=== PATIENT | male | born 1975 | race Hispanic/Latino ===

== ENCOUNTER → 2023-10-11 | Outpatient (REF) | payer OTHER ==
[~2023-10-11] MED LIST: BALSAM PERU/CASTOR OIL 60 GM OINT...G. TP ONE
== END ==
LOC: WCC 07:48
PROVIDERS: ATTEND Podiatrist Foot & Ankle Surgery
DX: E11.621 Type 2 diabetes mellitus with foot ulcer (principal); L97.511 Non-pressure chronic ulcer of other part of right foot limited to breakdown of skin; L98.8 Other specified disorders of the skin and subcutaneous tissue

== ENCOUNTER → 2023-10-25 | Outpatient (REF) | payer OTHER ==
[~2023-10-25] MED LIST changes: -BALSAM PERU/CASTOR OIL 60 GM OINT...G. TP ONE; +TRYPSIN/BALSAM PERU/CASTOR OIL ONE
== END ==
LOC: WCC 07:53
PROVIDERS: ATTEND Podiatrist Foot & Ankle Surgery
DX: E11.621 Type 2 diabetes mellitus with foot ulcer (principal); L97.511 Non-pressure chronic ulcer of other part of right foot limited to breakdown of skin; L98.8 Other specified disorders of the skin and subcutaneous tissue